=== PATIENT | female | born 2000 | race African-American/Black ===

== ENCOUNTER 2019-11-12 12:40 | Emergency (ER) | payer SELFPAY ==
--- NOTE | 2019-11-12 13:29 | ER Document Report ---
ED Medical Screen (RME) - General Chief Complaint: Fall Stated Complaint: EAR PAIN,ISSUES Time Seen by Provider: 11/12/19 13:24 Mode of Arrival: Ambulatory Information source: Patient Notes: 19-year-old female presents to ED for complaint of loss of hearing. She states she fell 2 days ago was fine at that time. States next morning she could not get up and she could not hear. She states her started younger but she could not hear and she could not get up. She is walking at this time. She still states she has to read lips in order to tell what you are saying. But she responds to some things that she said to her. I have greeted and performed a rapid initial assessment of this patient. A comprehensive ED assessment and evaluation of the patient, analysis of test resu lts and completion of medical decision making process will be conducted by an additional ED providers. Physical Exam - Vital signs Vitals: Temp Pulse Resp BP Pulse Ox 98.2 F 100 20 159/84 H 100 11/12/19 12:46 11/12/19 12:46 11/12/19 12:46 11/12/19 12:46 11/12/19 12:46 Course - Vital Signs Vital signs: Temp Pulse Resp BP Pulse Ox 98.2 F 100 20 159/84 H 100 11/12/19 12:46 11/12/19 12:46 11/12/19 12:46 11/12/19 12:46 11/12/19 12:46
[2019-11-12 14:16] LABS: ALBUMIN 4.2 g/dL (3.5-5.0); ALKALINE PHOSPHATASE 87 U/L (38-126); ANION GAP 8 (5-19); ASPARTATE AMINO TRANSFERASE 52 U/L (14-36); BILIRUBIN,DIRECT 0.1 mg/dL (0.0-0.4); BLOOD UREA NITROGEN 3 mg/dL (7-20); CALCIUM 9.1 mg/dL (8.4-10.2); CARBON DIOXIDE 29 mmol/L (22-30); CHLORIDE 100 mmol/L (98-107); GLUCOSE 94 mg/dL (75-110); POTASSIUM 3.6 mmol/L (3.6-5.0); TOTAL PROTEIN 7.8 g/dL (6.3-8.2)
[2019-11-12 14:44] LABS: ABSOLUTE EOSINOPHILS # (AUTO) 0.4 10^3/uL (0.0-0.6); ABSOLUTE LYMPHOCYTES (AUTO) 1.3 10^3/uL (0.5-4.7); ABSOLUTE MONOCYTES (AUTO) 0.5 10^3/uL (0.1-1.4); ABSOLUTE NEUT (AUTO) 4.2 10^3/uL (1.7-8.2); BASOPHILS % (AUTO) 0.4 % (0-2); EOSINOPHILS % (AUTO) 5.8 % (0-6); HEMOGLOBIN 11.2 g/dL (12.0-15.5); LYMPHOCYTES % (AUTO) 20.2 % (13-45); MEAN CORPUSCULAR HGB CONC 32.9 g/dL (32.0-36.0); MEAN CORPUSCULAR VOLUME 79 fl (80-97); MONOCYTES % (AUTO) 8.2 % (3-13); PLATELET COUNT 180 10^3/uL (150-450); RED BLOOD COUNT 4.29 10^6/uL (3.72-5.28); SEGMENTED NEUTROPHILS % (AUTO) 65.4 % (42-78); TOTAL CELLS COUNTED % (AUTO) 100 %; WHITE BLOOD COUNT 6.4 10^3/uL (4.0-10.5)
--- NOTE | 2019-11-12 15:09 | RADIOLOGY REPORT (SQ) ---
EXAM DESCRIPTION: CT HEAD WITHOUT IMAGES COMPLETED DATE/TIME: 11/12/2019 2:07 pm REASON FOR STUDY: Fell 2 days ago injury posterior head COMPARISON: None. TECHNIQUE: Axial images acquired through the brain without intravenous contrast. Images reviewed wit h bone, brain and subdural windows. Images stored on PACS. All CT scanners at this facility use dose modulation, iterative reconstruction, and/or weight based d osing when appropriate to reduce radiation dose to as low as reasonably achievable (ALARA). [facility]: Dose Right [facility]: CareDose [facility]: Dose Right [facility]: Teradose 4D [facility]: Smart [employer] RADIATION DOSE: CT Rad equipment meets quality standard of care and radiation dose reduction techniq ues were employed. CTDIvol: 53.2 mGy. DLP: 1017 mGy-cm.. LIMITATIONS: None. FINDINGS: VENTRICLES: Normal size and contour. CEREBRUM: No masses. No hemorrhage. No midline shift. Age appropriate white matter. No evidence for a cute infarction. CEREBELLUM: No masses. No hemorrhage. No alteration of density. No evidence for acute infarction. EXTRA-AXIAL SPACES: No fluid collections. ORBITS AND GLOBE: No intra- or extraconal masses. Normal contour of globe without masses. CALVARIUM: No fracture. PARANASAL SINUSES: No fluid or mucosal thickening. SOFT TISSUES: No mass or hematoma. OTHER: No other significant finding. IMPRESSION: NO ACUTE INTRACRANIAL FINDINGS. EVIDENCE OF ACUTE STROKE: NO. TECHNICAL DOCUMENTATION: JOB ID: [id number] [place]-72 Quality ID # 436: Final reports with documentation of one or more dose reduction techniques (e.g., Au tomated exposure control, adjustment of the mA and/or kV according to patient size, use of iterative reconstruction technique) 2010 [employer]- All Rights Reserved Reading location - IP/workstation name: [email or web address]
--- NOTE | 2019-11-12 15:10 | RADIOLOGY REPORT (SQ) ---
EXAM DESCRIPTION: CT CERVICAL SPINE WITHOUT IMAGES COMPLETED DATE/TIME: 11/12/2019 2:07 pm REASON FOR STUDY: Fell 2 days ago injury posterior head COMPARISON: None. TECHNIQUE: Axial images acquired through the cervical spine without intravenous contrast. Images re viewed with lung, soft tissue and bone windows. Reconstructed coronal and sagittal MPR images review ed. Images stored on PACS. All CT scanners at this facility use dose modulation, iterative reconstruction, and/or weight based d osing when appropriate to reduce radiation dose to as low as reasonably achievable (ALARA). [facility]: Dose Right [facility]: CareDose [facility]: Dose Right [facility]: Teradose 4D [facility]: Smart [employer] RADIATION DOSE: CT Rad equipment meets quality standard of care and radiation dose reduction techniq ues were employed. CTDIvol: 22.7 mGy. DLP: 379 mGy-cm. mGy. LIMITATIONS: None. FINDINGS: ALIGNMENT: Anatomic. MINERALIZATION: Normal. VERTEBRAL BODIES: No fractures or dislocation. DISCS: No significant disc disease. FACETS, LATERAL MASSES, POSTERIOR ELEMENTS: No fractures. No dislocation. No acute findings. HARDWARE: None in the spine. VISUALIZED RIBS: No fractures. LUNG APICES AND SOFT TISSUES: No significant or acute findings. OTHER: No other significant finding. IMPRESSION: NO ACUTE OR SIGNIFICANT FINDINGS IN THE CERVICAL SPINE. TECHNICAL DOCUMENTATION: JOB ID: [id number] [place]-72 Quality ID # 436: Final reports with documentation of one or more dose reduction techniques (e.g., Au tomated exposure control, adjustment of the mA and/or kV according to patient size, use of iterative reconstruction technique) 2010 [employer]- All Rights Reserved Reading location - IP/workstation name: [email or web address]
--- NOTE | 2019-11-12 16:10 | ER Document Report ---
ED General - General Chief Complaint: Fall Stated Complaint: EAR PAIN,ISSUES Time Seen by Provider: 11/12/19 13:24 Mode of Arrival: Ambulatory - [facility] Notes: 19yo F presents with concern for fluid behind her ears. patient states that 2 days ago she fell and hit her head on the back of the wall, felt ok afterwards. woke up this morning and had decreased hearing and sensation in fluid behind her ears. states that she can hear however there is a static and muffled sound. she then states that she cannot hear and must read lips. she denies fever or sore throat. denies pain. - Related Data Allergies/Adverse Reactions: Penicillins Allergy (Verified 11/12/19 16:46) Past Medical History - General Information source: Patient - Social History Smoking Status: Never Smoker Family History: Reviewed & Not Pertinent Review of Systems - Review of Systems Constitutional: denies: Fever EENT: Ear pain. denies: Throat pain, Difficulty swallowing Respiratory: No symptoms reported Gastrointestinal: No symptoms reported Genitourinary: No symptoms reported Female Genitourinary: No symptoms reported Musculoskeletal: No symptoms reported Skin: No symptoms reported Hematologic/Lymphatic: No symptoms reported Neurological/Psychological: No symptoms reported Physical Exam - Vital signs Vitals: Temp Pulse Resp BP Pulse Ox 98.2 F 100 20 159/84 H 100 11/12/19 12:46 11/12/19 12:46 11/12/19 12:46 11/12/19 12:46 11/12/19 12:46 Interpretation: No: Febrile - General General appearance: Appears well In distress: None - HEENT Head: Normocephalic, Atraumatic. No: Abrasions, Ecchymosis Extraocular movements intact: Yes Pupils: PERRL External canal: Normal Tympanic membrane: Other - Left TM is erythematous and bulging. Right canal is occluded with wax Pharynx: Normal Neck: Normal. No: Lymphadenopathy Notes: Patient's hearing is intact, she is able to respond to questions being asked of her, immediately looked up when the door opened entering her room - Respiratory Breath sounds: Normal - Cardiovascular Rhythm: Regular - Abdominal Inspection: Obese - Extremities General upper extremity: Normal ROM General lower extremity: Normal ROM - Neurological Neuro grossly intact: Yes Cognition: Normal Orientation: AAOx4 - Psychological Associated symptoms: Normal affect - Skin Skin Temperature: Warm Course - Re-evaluation Re-evalutation: 11/12/19 16:35 19yo F with alteration in hearing. on exam, hearing is intact, she is able to re spond to questions appropriately. L TM is erythematous and bulging, R TM is occluded by wax. exam consistent with AOM, have ordered amox, motrin and guaifenasin for symptoms. she received a head and cspine CT via the triage process, both are negative for acute injury. patient discharged with course of amoxicillin. stable at time of discharge. 11/12/19 17:02 i had asked patient about allergies, she denies drug allergies. nursing went to administer amox, pt then stated pcn allergy, she did not received the medication. have discontinued amox rx and wrote for azith instead. - Vital Signs Vital signs: Temp Pulse Resp BP Pulse Ox 98.1 F 81 19 151/77 H 100 11/12/19 17:02 11/12/19 17:02 11/12/19 17:02 11/12/19 17:02 11/12/19 17:02 - Laboratory Result Diagrams: 11/12/19 13:37 11/12/19 13:37 Laboratory results interpreted by me: 11/12/19 11/12/19 13:37 13:37 Hgb 11.2 L Hct 34.0 L MCV 79 L MCH 26.0 L RDW 15.0 H BUN 3 L AST 52 H Discharge - Discharge Clinical Impression: AOM (acute otitis media) Qualifiers: Otitis media type: suppurative Laterality: left Recurrence: non-recurrent Spontaneous tympanic membrane rupture: without spontaneous rupture Qualified Code(s): H66.002 - Acute suppurative otitis media without spontaneous rupture of ear drum, left ear Condition: Stable Disposition: HOME, SELF-CARE Additional Instructions: please begin course of azithromycin for ear infection. you may continue to use ibuprofen and guaifenasin (muxinex) for symptoms. return to the ED for any concerning or worsening symptoms. Prescriptions: Azithromycin 250 mg PO ASDIR 5 Days #6 tablet
[2019-11-12] MEDS ORDERED: AMOXICILLIN TRIHYDRATE 500 MG CAPSULE PO ONE (16:19)
[2019-11-12] MEDS ORDERED: GUAIFENESIN 600 MG TABLET.SA PO ONE (16:19)
[2019-11-12] MEDS ORDERED: IBUPROFEN 800 MG TABLET PO ONE (16:19)
[2019-11-12 17:04] VITALS: BP 151/77
== END 2019-11-12 17:02 | disposition home or self-care (01) ==
LOC: ER 12:40
DX: H66.002 Acute suppurative otitis media without spontaneous rupture of ear drum, left ear (principal); H61.21 Impacted cerumen, right ear; Z88.0 Allergy status to penicillin
CPT/HCPCS: 36415; 70450; 72125; 80053; 85025; 99284